=== PATIENT | female | born 1955 ===

== ENCOUNTER 2019-07-14 06:29 | Day surgery (SDC) | payer BC ==
[~2019-07-14 06:29] MED LIST: Buffered Lidocaine 1% SYRIN* 1 ML/SYRINGE INTRADERM ONE; Famotidine IV* 10 MG/ML 2 ML (20 mg) IV ONE; Lactated Ringers 1000 ML Bag* 1,000 ML IV SCH
[2019-07-14] MEDS ORDERED: Famotidine IV* 10 MG/ML 2 ML (20 mg) ONE (06:30)
[2019-07-14] MEDS ORDERED: Lidocaine 1% INJ* 10 MG/ML 30 ML SDV ONE (07:06)
[2019-07-14] MEDS ORDERED: Midazolam* 1 MG/ML 5 ML VIAL (5 MG) ONE (07:27)
[2019-07-14] MEDS ORDERED: Ondansetron INJ* 2 MG/ML VIAL ONE (07:36)
[2019-07-14] MEDS ORDERED: Propofol* 10 MG/ML 20 ML BTL ONE (07:36)
[2019-07-14] MEDS ORDERED: Lidocaine 2% PF * 5 ML VIAL ONE (07:36)
[2019-07-14] MEDS ORDERED: Ketorolac INJ* 30 MG/ML 1 ML VIAL ONE (07:36)
[2019-07-14] MEDS ORDERED: DiMENhydriNATE IV* 50 MG/ML VIAL IV PUSH PRN (08:01)
[2019-07-14] MEDS ORDERED: Naloxone* 0.4 MG/ML 1 ML VIAL IV PRN (08:01)
[2019-07-14 08:18] VITALS: BP 126/64
--- NOTE | 2019-07-14 23:41 | OP ---
CC: Dr. Mcclain OPERATIVE REPORT: DATE OF OPERATION: 07/14/19 DATE OF : 57 SURGEON: Becky Mcclain MD EARLY INTERVENTIONIST: CARLIN Cevallos ANESTHESIOLOGIST: ANESTHESIA: Local MAC PRE-OP DIAGNOSIS: Right long finger triggering POST-OP DIAGNOSIS: Right long finger triggering OPERATIVE PROCEDURE: Right long finger trigger finger release. ESTIMATED BLOOD LOSS: Zero. TOURNIQUET TIME: About 10 minutes. INDICATION FOR PROCEDURE: Val is a 64-year-old female with triggering and locking of her right bárbara g finger. She presents for trigger finger release. DESCRIPTION OF PROCEDURE: The patient was brought to the operating room, was given a sedation anesth etic and a local infiltration of 10 cc of 1% plain lidocaine in the palm of her right hand overlying the A1 jacinta of the middle finger. The skin of the right upper extremity was prepped and draped in the usual sterile fashion. The hand and forearm were exsanguinated and the tourniquet was elevated to 250 mmHg. A transverse incision was made centered over the A1 jacinta of the middle finger. We diss ected through the subcutaneous tissue down to the jacinta. The digital neurovascular bundles were ret racted by the rn surgical pcu, Cheyanne Fairbanks. The A1 jacinta was incised completely releasing the f lexor tendons, which were in good condition. The wound was irrigated. The skin edges were reapproxi mated with 4-0 nylon suture. The wound was dressed with Xeroform, 4x4, Webril and an Geanro wrap. The patient tolerated the procedure well and was brought to the recovery room in good condition. [id number] #: [id number]
== END 2019-07-14 08:42 | disposition home or self-care (01) ==
LOC: OREAST 06:29
PROVIDERS: ATTEND Orthopaedic Surgery
DX: M65.331 Trigger finger, right middle finger (principal); E11.9 Type 2 diabetes mellitus without complications; Z79.84 Long term (current) use of oral hypoglycemic drugs; E78.5 Hyperlipidemia, unspecified
CPT/HCPCS: J1885; J2250; J2405; J2704